=== PATIENT | female | born 1955 | race Caucasian/White ===

== ENCOUNTER 2021-05-02 19:49 | Emergency (ER) | payer OTHER ==
[~2021-05-02] VITALS: Ht 170.2 cm; Wt 72.6 kg
[2021-05-02 20:00] VITALS: BP 156/82
--- NOTE | 2021-05-02 20:00 | NUR ---
65 Y/O FEMAL BIBA, C/O PAIN TO L KNEE S/P FALL AT 0600 THIS MORNING. PATIENT PRESENTS TO ED WITH PAIN IN L KNEE AND PEDAL EDEMA IN THE L FOOT, AND PAIN TO HER NECK. PT STATES THE FALL HAPPENED AT 0600 THIS MORNING, SHE FELT WEAK, AND FELL W/O LOC OR OBVIUS SIGNS OF INJURY AND SHE DID NOT THINK ANYTHING OF IT. AFTER THE PAIN STATED LATER IN THE AFTERNOO SHE CALLED EMS. DENIES N/V/D; SKIN IS PINK/WARM/DRY; AAOX4; PT DENIES ANY FEVER, CP, SOB, OR COUGH AT THIS TIME; PATIENT STATES PAIN OF 7/10 AT THIS TIME; VSS; PATIENT POSITIONED FOR COMFORT; HOB ELEVATED; BEDRAILS UP X2; BED DOWN. ER MD MADE AWARE OF PT STATUS. HX: HYPOTHYROID, ANX, GERD, SCHIZOPHRENIA, HTN, COPD, OSTEOPOROSIS ALLERGY: "PAIN MEDS MAKE ME VOMIT" MEDS: ACETAMINOPHEN, ALEDRONATE, BUDESONIDE, RISPERADONE, BENZONATE
--- NOTE | 2021-05-02 20:03 | NUR ---
[facility]
--- NOTE | 2021-05-02 20:45 | NUR ---
XRAY AT BEDSIDE
--- NOTE | 2021-05-02 21:28 | NUR ---
PT LEAVING FOR CT
--- NOTE | 2021-05-02 21:43 | NUR ---
PT RETURNED FROM CT
[2021-05-02 22:13] LABS: BASOPHILS # (AUTO) 0.1 K/uL (0.00-0.22); BASOPHILS % (AUTO) 1.2 % (0.0-2.0); HEMATOCRIT 39.3 % (36-48); HEMOGLOBIN 13.1 g/dL (12.0-16.0); LYMPHOCYTES # (AUTO) 2.2 K/uL (2.5-16.5); LYMPHOCYTES % (AUTO) 46.4 % (20.5-51.1); MEAN CORPUSCULAR HEMOGLOBIN 28 pg (27-31); MEAN CORPUSCULAR HGB CONC 33 g/dL (33-37); MONOCYTES # (AUTO) 0.4 K/uL (0.8-1.0); MONOCYTES % (AUTO) 8.9 % (1.7-9.3); NEUTROPHILS % (AUTO) 42.5 % (42.2-75.2); PLATELET COUNT (AUTO) 162 K/uL (140-450); RED BLOOD CELL COUNT(AUTO) 4.74 MIL/uL (4.20-5.40); RED CELL DISTRIBUTION WIDTH 14.6 % (11.6-13.7); WHITE BLOOD COUNT (AUTO) 4.7 K/uL (4.8-10.8)
[2021-05-02 22:42] LABS: ALBUMIN 3.5 g/dL (3.4-5.0); ANION GAP 7.5 (8-16); CARBON DIOXIDE 34.8 mmol/L (21-32); POTASSIUM 4.3 mmol/L (3.5-5.1); TOTAL BILIRUBIN 0.6 mg/dL (0.0-1.0)
[2021-05-02] MEDS ORDERED: KETOROLAC 30 MG/ML VIAL IVP ONE (23:40)
[2021-05-02] MEDS ORDERED: IBUP-2213 PO (23:42)
--- NOTE | 2021-05-03 05:06 | NUR ---
pt is sleeping comfortably in bed. contacted multiple facilities for transport to no avail, still unable to procure transport for pt until normal business hours. pt and md are aware.
--- NOTE | 2021-05-03 07:14 | NUR ---
REPORT GIVEN TO RUSS HERR
--- NOTE | 2021-05-03 07:14 | NUR ---
REPORT RECEIVED FROM JO HERR FOR CONTINUITY OF CARE. PT IS A&OX4. RESTING IN BED, CHEST RISE IS SYMMETRICAL. RESPIRATIONS EVEN AND UNLABORED. WILL CONTINUE TO MONITOR.
--- NOTE | 2021-05-03 08:42 | NUR ---
PT PROVIDED WITH BREAKFAST TRAY
--- NOTE | 2021-05-03 09:47 | NUR ---
REPORT GIVEN TO FACILITY. MADE AWARE PT WILL BE DISCHARGED.
[2021-05-03 10:00] VITALS: BP 123/56
--- NOTE | 2021-05-03 10:00 | NUR ---
Patient discharged with v/s stable. Written and verbal after care instructions given and explained. Patient alert, oriented and verbalized understanding of instructions. Ambulance Transport with to custodial. All questions addressed prior to discharge. ID band removed. Patient advised to follow up with PMD. Rx of IBUPROFEN given. Patient educated on indication of medication including possible reaction and side effects. Opportunity to ask questions provided and answered.
== END 2021-05-03 10:00 ==
LOC: MED 19:49
DX: S80.02XA Contusion of left knee, initial encounter (principal); S10.93XA Contusion of unspecified part of neck, initial encounter; S09.90XA Unspecified injury of head, initial encounter; F20.9 Schizophrenia, unspecified; W19.XXXA Unspecified fall, initial encounter; Y93.89 Activity, other specified; Y92.89 Other specified places as the place of occurrence of the external cause; Y99.8 Other external cause status
CPT/HCPCS: 36415; 70450; 71045; 72125; 73562; 80053; 84484; 85025; 93005; 96374; 99285; J1885; Q0092